=== PATIENT | male | born 1995 | race Caucasian/White ===

== ENCOUNTER → 2018-03-21 | Outpatient (CLI) | payer OTHER ==
--- NOTE | 2018-03-21 15:03 | EEG Procedure Note ---
EEG Procedure Note Date of Service March 21, 2018. Start / End Times Start Time: 1:36 PM End Time: 1:56 PM Referring Physician Alberto Fuentes History This is a 22-year-old male with recent seizure in September. EEG for further evaluation of seizure etiology. Description This is a 21 electrode EEG with a single channel dedicated to limited EKG. The electrodes were placed in accordance with the International 10-20 system. At the start of the recording the patient was in an awake state. Background was well organized and composed of symmetric mixed alpha and beta frequencies. There was a symmetric well-formed moderate amplitude 9-10 Hz posterior dominant rhythm that was reactive to eye opening and closure. Hyperventilation with good effort produced no abnormalities. Intermittent photic stimulation at various frequencies produced no abnormalities. There was no state changes or sleep transients Interpretation This is a normal awake only routine EEG. There was no electrographic seizures or epileptiform discharges. Clinical Correlation A normal EEG does not rule out epilepsy if there is a strong clinical suspicion.
== END | disposition home or self-care (01) ==
LOC: C.NEUR 12:55
PROVIDERS: ATTEND Internal Medicine
DX: R56.9 Unspecified convulsions (principal)